=== PATIENT | male | born 1945 | race Caucasian/White ===

== ENCOUNTER → 2016-05-12 | Outpatient (CLI) | payer OTHER, MEDICARE ==
[~2016-05-12] MED LIST: ASPEC81 PO; RMCI IV
== END | disposition home or self-care (01) ==
LOC: C.LABPBG 14:26
PROVIDERS: ATTEND Internal Medicine
DX: E03.9 Hypothyroidism, unspecified (principal); Z11.59 Encounter for screening for other viral diseases

== ENCOUNTER → 2017-03-30 | Outpatient (CLI) | payer OTHER, MEDICARE ==
[2017-03-30 12:22] LABS: BASO % 0.5 %; BASO ABS # 0.03 K/uL (0-0.2); COMPLETE YES; EOS % 2.9 %; HEMATOCRIT 48.3 % (42-52); IG% 0.3 %; LYMPH % 28.4 %; LYMPH ABS # 1.68 K/uL (1.2-3.4); MEAN CELL VOLUME 91.5 fL (80-100); MEAN CORPUSCULAR HEMOGLOBIN 31.4 pg (25-34); MEAN CORPUSCULAR HGB CONC 34.4 g/dl (32-36); MEAN PLATELET VOLUME 10.6 fL (7.4-10.4); MONO % 11.3 %; NEUT % 56.6 %; PLATELET COUNT 157 K/uL (130-400); RED BLOOD COUNT 5.28 M/uL (4.7-6.1); WHITE BLOOD COUNT 5.91 K/uL (4.8-10.8)
[2017-03-30 12:44] LABS: ESTIMATED AVERAGE GLUCOSE 120 mg/dl; HA1C FLAG Normal (Normal)
[2017-03-30 13:11] LABS: ALT/SGPT 66 U/L (12-78); AST/SGOT 33 U/L (15-37); BLOOD UREA NITROGEN 20 mg/dl (7-18); BUN/CREATININE RATIO 24.5 (10-20); CALCIUM 8.7 mg/dl (8.5-10.1); CARBON DIOXIDE 26 mmol/L (21-32); CHLORIDE 109 mmol/L (98-107); CREATININE 0.84 mg/dl (0.60-1.40); GLUCOSE 120 mg/dl (70-99); POTASSIUM 3.9 mmol/L (3.5-5.1); SODIUM 140 mmol/L (136-145)
[2017-03-30 13:20] LABS: ALB/GLOB RATIO 0.9 (0.9-2); ALKALINE PHOSPHATASE 52 U/L (45-117); CHOLESTEROL 161 mg/dl (0-200); CHOLESTEROL/HDL RATIO 5.8; HDL CHOLESTEROL 28 mg/dl; LDL CHOLESTEROL CALCULATED 65 mg/dl; TRIGLYCERIDES 340 mg/dl (0-150); VERY LOW DENSITY LIPOPROT CALC 68 mg/dl
== END | disposition home or self-care (01) ==
LOC: C.LABPBG 11:10
PROVIDERS: ATTEND Internal Medicine
DX: I10 Essential (primary) hypertension (principal); E78.5 Hyperlipidemia, unspecified; E03.9 Hypothyroidism, unspecified; R73.01 Impaired fasting glucose; I63.9 Cerebral infarction, unspecified; K51.90 Ulcerative colitis, unspecified, without complications; Z79.899 Other long term (current) drug therapy

== ENCOUNTER 2021-01-09 14:20 | Observation (INO) ==
[2021-01-09] MEDS ORDERED: methylPREDNISolone 125 MG/2 ML VIAL IV STA (15:09)
[2021-01-09] MEDS ORDERED: ALBUT/IPRATROP 3MG/0.5MG NEB 3 ML VIAL INH STA (15:09)
--- NOTE | 2021-01-09 15:19 | Emergency Department Note ---
History of Present Illness General Chief complaint: Shortness of Breath/Dyspnea Stated complaint: SHORT OF BREATH Time Seen by Provider: 01/09/21 14:56 History of Present Illness 75-year-old male presents to the ED with a chief complaint of shortness of breath. 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 He states that he has had progressive increase in cough and shortness of breath over the past couple of weeks. His symptoms are worse with exertion. He has been rather fatigued recently as well. He does not currently use home oxygen and he is not currently on prednisone or steroids. He did use a DuoNeb treatment before coming in. Home Medications Medication Instructions Recorded Confirmed Type infliximab 100 mg intravenous 100 mg IV .EVERY 6 WEEKS 06/11/18 12/31/20 History solution (Remicade) aspirin 81 mg tablet,delayed 81 mg PO DAILY 01/09/21 01/09/21 History release (Aspirin Low Dose) Allergies Allergy/AdvReac Type Severity Reaction Status Date / Time amlodipine Allergy Intermediate RASH Verified 12/31/20 13:05 Past Med/Surg History Medical History BPH (benign prostatic hyperplasia) Cerebral arterial aneurysm Chronic ulcerative colitis CVA (cerebral vascular accident) Depression with anxiety Dyslipidemia GERD (gastroesophageal reflux disease) History of anesthesia reaction "wasn't cooperative during cataract extraction" HTN (hypertension) Hypothyroidism no longer on meds Impaired fasting glucose Nephrolithiasis Smokeless tobacco use Surgical History History of bilateral cataract extraction History of colonoscopy History of esophagogastroduodenoscopy (EGD) History of tooth extraction all upper teeth History of umbilical hernia repair Family History Sister Arthritis Brother Crohn's disease Cancer Gastric, skin Lung disease Father Lung disease Son Hypertension Other No family history of adverse response to anesthesia Denies family history of Ovarian cancer Prostate cancer Myocardial infarction Breast cancer Colorectal cancer Social History Smoking Status: Never smoker Tobacco Type: Cigarettes Age Started Using Tobacco: 19; packs per day: 1; Cigarettes Per Day: quit smoking around 45; Second Hand Exposure: No; Hx Alcohol Use: Yes Alcohol type: beer Alcohol type Comment: 2 Hx Substance Use: No Preferred Language: Senegalese Communication Ability: Effective Visual Impairment: No Limitations Hearing Ability: Normal Paper And Prints Restorer Required: No Beliefs That Will Affect Care: None marital status: Current Living Situation: Spouse current occupational status: retired Feels Safe at Home: Yes caffeine: Yes during the past year weight has: remained stable Dental Care, Regularly: Yes Physical Activity Frequency: Daily Seatbelt Use: always Sunscreen Use: No Assistive Devices: Denture - Upper and Glasses Review of Systems A total of 10 systems reviewed and were otherwise negative Physical Exam Vital Signs Vital Signs - 24 hr 01/09/21 14:26 01/09/21 14:54 01/09/21 14:55 Temperature 36.4 C L Temperature Source Skin Pulse Rate 79 Pulse Rate [Right Finger] 100 H Pulse Rhythm [Right Finger] Regular Pulse Strength [Right Finger] Normal Respiratory Rate 22 24 Respiratory Effort / Characteristics Non-Labored Respiratory Depth Normal Respiratory Pattern Regular Blood Pressure 159/86 H Blood Pressure [Left Arm] 150/85 H Blood Pressure Mean 110 Blood Pressure Mean [Left Arm] 106 Blood Pressure Position [Left Arm] Lying Pulse Oximetry 85 L 99 100 Oxygen Delivery Method Room Air Nasal Cannula Nasal Cannula Oxygen Flow Rate 6 4 Fraction of Inspired Oxygen SaO2/FiO2 Ratio Sepsis Recent Fever Within 48 Hours No Sepsis New/Unexplained Change in Mental Status No Sepsis Action Taken by Nursing No Action Required Oxygen Flow Rate - Titration 4 Pulse Oximetry Post Tiitration 98 01/09/21 15:05 01/09/21 15:08 01/09/21 15:35 Temperature Temperature Source Pulse Rate 72 Pulse Rate [Right Finger] Pulse Rhythm [Right Finger] Pulse Strength [Right Finger] Respiratory Rate 28 H Respiratory Effort / Characteristics Spontaneous Short of Breath Respiratory Depth Normal Respiratory Pattern Tachypnea Blood Pressure Blood Pressure [Left Arm] Blood Pressure Mean Blood Pressure Mean [Left Arm] Blood Pressure Position [Left Arm] Pulse Oximetry 99 97 Oxygen Delivery Method Nasal Cannula Nasal Cannula Nasal Cannula Oxygen Flow Rate 4 4 Fraction of Inspired Oxygen 4 SaO2/FiO2 Ratio 2425 Sepsis Recent Fever Within 48 Hours Sepsis New/Unexplained Change in Mental Status Sepsis Action Taken by Nursing Oxygen Flow Rate - Titration Pulse Oximetry Post Tiitration 01/09/21 15:50 Temperature Temperature Source Pulse Rate Pulse Rate [Right Finger] 73 Pulse Rhythm [Right Finger] Pulse Strength [Right Finger] Respiratory Rate 20 Respiratory Effort / Characteristics Non-Labored Spontaneous Respiratory Depth Respiratory Pattern Blood Pressure Blood Pressure [Left Arm] Blood Pressure Mean Blood Pressure Mean [Left Arm] Blood Pressure Position [Left Arm] Pulse Oximetry 98 Oxygen Delivery Method Nasal Cannula Oxygen Flow Rate 4 Fraction of Inspired Oxygen SaO2/FiO2 Ratio Sepsis Recent Fever Within 48 Hours Sepsis New/Unexplained Change in Mental Status Sepsis Action Taken by Nursing Oxygen Flow Rate - Titration Pulse Oximetry Post Tiitration CONSTITUTIONAL/VITAL SIGNS: Reviewed / noted above. GENERAL: Non-toxic in appearance. INTEGUMENTARY: Warm, dry, and [place]. HEAD: Normocephalic. EYES: without scleral icterus or trauma. ENT/OROPHARYNX: clear and moist. LYMPHADENOPATHY/NECK: Is supple without lymphadenopathy or meningismus. RESPIRATORY: Diminished with wheezes bilaterally. No increased work of breath ing at rest. CARDIOVASCULAR: Regular rate and rhythm. GI/ABDOMEN: Soft and nontender. No organomegaly or pulsatile mass. EXTREMITIES: Warm and well perfused. BACK: No CVA tenderness. NEUROLOGICAL: Intact without focal deficits. PSYCHIATRIC: normal affect. MUSCULOSKELETAL: Normally developed with good muscle tone. TRIAGE NURSING DOCUMENTATION REVIEWED. Course Administered Medications Discontinued Medications Albuterol (Albut/Ipratrop 3mg/0.5mg Neb 3 Ml Vial) 3 ml INH NOW STA Stop: 01/09/21 15:10 Last Admin: 01/09/21 15:48 Dose: 3 ml Documented by: [id number] Methylprednisolone (Methylprednisolone 125 Mg/2 Ml Vial) 125 mg IV NOW STA Stop: 01/09/21 15:10 Last Admin: 01/09/21 15:29 Dose: 125 mg Documented by: [id number] Medical Decision Making Differential Diagnosis The differential was considered includes acute myocardial infarction, acute coronary syndrome, myocarditis, pericarditis, pericardial effusions /tamponad, esophageal perforation, pulmonary embolism, pneumonia, pneumothorax, ca rdiomyopathy, congestive heart, anemia , COPD/asthma exacerbation. Medical Records Attestation: I reviewed the patient's medical records. Home Medications Current Medication List: was personally reviewed by me Laboratory Data Attestation: I reviewed the patient's lab results. Result diagrams: 01/09/21 15:20 01/09/21 15:20 Lab Results 01/09/21 01/09/21 Range/Units 15:20 15:20 WBC 6.56 (4.8-10.8) K/uL RBC 5.63 (4.7-6.1) M/uL Hgb 17.3 (14.0-18.0) g/dL Hct 54.5 H (42-52) % MCV 96.8 (80-100) fL MCH 30.7 (25-34) pg MCHC 31.7 L (32-36) g/dL RDW Std Deviation 47.4 H (36.4-46.3) fL RDW Coeff of Susan 13.3 (11.5-14.5) % Plt Count 158 (130-400) K/uL MPV 11.1 H (7.4-10.4) fL Immature Gran % (Auto) 0.3 % Neut % (Auto) 55.6 % Lymph % (Auto) 25.8 % Turner % (Auto) 14.6 % Eos % (Auto) 3.2 % Baso % (Auto) 0.5 % Neut # (Auto) 3.65 (1.4-6.5) K/uL Lymph # (Auto) 1.69 (1.2-3.4) K/uL Turner # (Auto) 0.96 H (0.11-0.59) K/uL Eos # (Auto) 0.21 (0-0.5) K/uL Baso # (Auto) 0.03 (0-0.2) K/uL Immature Gran # (Auto) 0.02 (0.00-0.02) K/uL Sodium 142 (136-145) mmol/L Potassium 4.4 (3.5-5.1) mmol/L Chloride 105 (98-107) mmol/L Carbon Dioxide 34 H (21-32) mmol/L Anion Gap 3.0 (3-11) BUN 20 H (7-18) mg/dl Creatinine 0.99 (0.6-1.4) mg/dl Est Cr Clr Drug Dosing 74.0 ml/min Est GFR ( Amer) 86.6 ml/min Est GFR (Non-Af Amer) 74.7 ml/min BUN/Creatinine Ratio 20.5 H (10-20) Glucose 93 (70-99) mg/dl Calcium 8.6 (8.5-10.1) mg/dl Total Bilirubin 0.4 (0.2-1) mg/dl AST 59 H (15-37) U/L ALT 86 H (12-78) U/L Alkaline Phosphatase 41 L (45-117) U/L Troponin I 0.049 H* (0-0.045) ng/ml NT-Pro-B Natriuret Pep 429 (0-900) pg/ml Total Protein 7.9 (6.4-8.2) gm/dl Albumin 3.3 L (3.4-5.0) gm/dl Globulin 4.6 H (2.5-4.0) gm/dl Albumin/Globulin Ratio 0.7 L (0.9-2) Specimen Hemolysis Imaging Data Radiologist's Impression: Chest X-Ray 01/09/21 15:09 XR chest 1V portable CLINICAL HISTORY: Dyspnea COMPARISON STUDY: August 16, 2010 FINDINGS: No pneumothorax. No pleural effusion. Lung volumes are decreased with crowded lung markings. No large infiltrates or consolidative lesions are seen. Mild nodular opacities are seen at the left base, unchanged since prior and might represent chronic changes. Few reticular opacities are seen at the right base and might represent subsegmental atelectasis or scarring. Cardiomediastinal silhouette is within normal limits in size. No significant pulmonary vascular congestion.. Aorta is calcified. Osseous structures: Degenerative changes of the spine. IMPRESSION: 1. No large infiltrates or consolidative lesions. Possible small atelectasis or scarring at the right base. 2. Redemonstration of the nodular opacities at the left base, unchanged since prior study in 2010 and likely represent chronic process. 3. Atherosclerosis. 4. The rest of findings as above. ACT 112: Negative or not required by law. The above report was generated using voice recognition software. It may contain grammatical, syntax or spelling errors. Electronically signed by: Gay Sims DO 01/09/2021 4:19 PM ECG Data Attestation: I personally reviewed and interpreted this ECG as follows: Additional Comments: Twelve-lead EKG: Per my interpretation there is a normal sinus rhythm at a rate of 65. T wave inversions are noted in the anterolateral leads.These are new compared to EKG dated 2010. MDM Narrative Patient presents with a history of Boop and progressive difficulty breathing and cough over the last 2 weeks as detailed above. His initial vital signs showed an oxygen saturation of 85% on room air. He does not have home oxygen. He did use a DuoNeb treatment prior to coming in. Vital signs otherwise stable. Exam reveals diffuse wheezing in the bilateral lungs. The chest x-ray did not show any acute process. Troponin was elevated at 0.049. CBC and chemistry panel was unremarkable. There is a mild transaminitis. The patient was told the results. He is requiring oxygen here to maintain saturations above 88%. He was given a nebulizer treatment as well as some IV steroid. He was also given p.o. aspirin. He will require further inpatient evaluation and care. Impression & Plan Hypoxia, Exertional dyspnea, Bilateral wheezing, Elevated troponin Discharge Plan Visit Data Chief Complaint: Shortness of Breath/Dyspnea Stated Complaint: SHORT OF BREATH ED Provider: Geovani Randall Discharge Problem: Hypoxia, Exertional dyspnea, Bilateral wheezing, Elevated troponin Patient Disposition: Being Evaluated by Hospitalist Forms Stand Alone Forms: [facility] Prescriptions Prescriptions: No Action aspirin 81 mg tablet 81 mg PO DAILY RF: 0 Remicade 100 mg Recon Soln 100 mg IV .EVERY 6 WEEKS RF: 0 Referrals Referrals: Pete Chapman MD [Primary Care Provider] -
[2021-01-09 15:37] LABS: Basophils # (auto) 0.03 K/uL (0-0.2); Basophils % (auto) 0.5 %; Eosinophils # (auto) 0.21 K/uL (0-0.5); Eosinophils % (auto) 3.2 %; Hematocrit (blood only) 54.5 % (42-52); Hemoglobin 17.3 g/dL (14.0-18.0); Immature Granulocytes # (auto) 0.02 K/uL (0.00-0.02); Immature Granulocytes % (auto) 0.3 %; Lymphocytes # (auto) 1.69 K/uL (1.2-3.4); Lymphocytes % (auto) 25.8 %; Mean Corpuscular Hemoglobin 30.7 pg (25-34); Mean Corpuscular Hgb Conc 31.7 g/dL (32-36); Mean Corpuscular Volume 96.8 fL (80-100); Mean Platelet Volume 11.1 fL (7.4-10.4); Monocytes # (auto) 0.96 K/uL (0.11-0.59); Monocytes % (auto) 14.6 %; Neutrophils # (auto) 3.65 K/uL (1.4-6.5); Neutrophils % (auto) 55.6 %; Platelet Count 158 K/uL (130-400); RDW Coefficient of Variation 13.3 % (11.5-14.5); RDW Standard Deviation 47.4 fL (36.4-46.3); Red Blood Count 5.63 M/uL (4.7-6.1); White Blood Count 6.56 K/uL (4.8-10.8)
[2021-01-09 15:55] LABS: Albumin Level 3.3 gm/dl (3.4-5.0); BUN Creatinine Ratio 20.5 (10-20); Calcium 8.6 mg/dl (8.5-10.1); Est GFR (African American) 86.6 ml/min; Est GFR (Non-African American) 74.7 ml/min; Potassium 4.4 mmol/L (3.5-5.1)
[2021-01-09 16:02] LABS: Albumin Globulin Ratio 0.7 (0.9-2); Bilirubin,Total 0.4 mg/dl (0.2-1); Globulin 4.6 gm/dl (2.5-4.0); Total Protein 7.9 gm/dl (6.4-8.2); Troponin I 0.049 ng/ml (0-0.045)
--- NOTE | 2021-01-09 16:21 | XRay Report ---
XR chest 1V portable CLINICAL HISTORY: Dyspnea COMPARISON STUDY: August 16, 2010 FINDINGS: No pneumothorax. No pleural effusion. Lung volumes are decreased with crowded lung markings. No large infiltrates or consolidative lesions are seen. Mild nodular opacities are seen at the left b ase, unchanged since prior and might represent chronic changes. Few reticular opacities are seen at the right base and might represent subsegmental atelectasis or sc arring. Cardiomediastinal silhouette is within normal limits in size. No significant pulmonary vascular congestion.. Aorta is calcified. Osseous structures: Degenerative changes of the spine. IMPRESSION: 1. No large infiltrates or consolidative lesions. Possible small atelectasis or scarring at the righ t base. 2. Redemonstration of the nodular opacities at the left base, unchanged since prior study in 2010 an d likely represent chronic process. 3. Atherosclerosis. 4. The rest of findings as above. ACT 112: Negative or not required by law. The above report was generated using voice recognition software. It may contain grammatical, syntax o r spelling errors. Electronically signed by: Gay Sims DO 01/09/2021 4:19 PM
[2021-01-09] MEDS ORDERED: ASPIRIN CHEW 324 MG PO STA (16:24)
--- NOTE | 2021-01-09 17:16 | History & Physical Report ---
Date of Service January 09, 2021 Assessment & Plan (1) Hypoxia: Plan: Likely underlying obstructive/restrictive disease and now possibly needing chronic O2. 6 minute walk test for tomorrow Will defer chronic steroid treatment to pulmonology but will need to follow up for lung function tests (2) Reactive airway disease: Plan: Previously diagnosed with this. Will need PFTs as outpatient. Solu-medrol 125mg IV given in ER Start prednisone 40mg PO daily tomorrow. Will defer taper/burst to pulm Duonebs Q4R Consider steroid inhaler alone on discharge (suspect prior side effects from maintenance inhalers was from [facility]) (3) Bilateral wheezing: Plan: As above (4) Elevated troponin: Plan: Widespread TWI. History not suggestive of ACS. Will trend to make sure stable and get TTE tomorrow. If any wall motion abnormalities or reduced EF will need cardiology follow up as long as troponins stable/downtrending. ASA given in ER. Will defer further treatment unless troponin uptrending. (5) BOOP (bronchiolitis obliterans with organizing pneumonia): Plan: History of such Consult pulmonology Plan: VTE Prophylaxis - Low risk, deferred Diet - heart healthy Disposition - observation status to med/tele Admission and Anticipated Discharge Date Admission Date: January 09, 2021 History of Present Illness Chief Complaint: Shortness of breath Primary Care Provider: Pete Chapman MD Robby Freeman is a 75 year old male with prior diagnosis of bronchiolitis obliterans organizing pneumonia who presents to the ER on advice of his PCP office for shortness of breath. He was previously treated by Dr Zamudio ([facility] pulmonology) on chronic prednisone 5mg PO daily and oxygen. When he switched to a new provider (many years ago) he was taken off these as he was told he didn't need then but has had repeated "acute bronchitis" episodes requiring antibiotics and steroids since. Over the past few weeks he has been getting increasingly short of breath and more hypoxic on his home O2 sats. Today he was in the mid 80s therefore his PCP office recommended going to the ER. He feels he needs to go back on chronic steroids and oxygen. He uses an albuterol inhaler that helps. Previous tried maintenance inhalers (unknown which ones) but had side effects so had to stop them. He is a former smoker of 5 cigarettes a day for 16 years in his youth. BOOP was diagnosed after suspected chemical poisoning from cleaning HVAC units from [id number]. He is vaccinated for COVID. In the ER he is diffusely wheezing, CXR unremarkable for acute process. He was given 125mg IV Solu-medrol and Duonebs with improvement in his symptoms. His troponin was mildly elevated with diffuse TWI but he denies any acute change in symptoms today and no chest pain. He was referred to medicine for admission and ongoing management due to requiring 2LPM O2 to maintain sats > 88%. He tells me he does not wish to stay more than one night. Allergies Allergy/AdvReac Type Severity Reaction Status Date / Time amlodipine Allergy Intermediate RASH Verified 12/31/20 13:05 Home Medications Medication Instructions Recorded Confirmed Type infliximab 100 mg intravenous 100 mg IV .EVERY 6 WEEKS 06/11/18 01/09/21 History solution (Remicade) aspirin 81 mg tablet,delayed 81 mg PO DAILY 01/09/21 01/09/21 History release (Aspirin Low Dose) Past Med/Surg History Medical History BPH (benign prostatic hyperplasia) Cerebral arterial aneurysm Chronic ulcerative colitis CVA (cerebral vascular accident) Depression with anxiety Dyslipidemia GERD (gastroesophageal reflux disease) History of anesthesia reaction "wasn't cooperative during cataract extraction" HTN (hypertension) Hypothyroidism no longer on meds Impaired fasting glucose Nephrolithiasis Smokeless tobacco use Surgical History History of bilateral cataract extraction History of colonoscopy History of esophagogastroduodenoscopy (EGD) History of tooth extraction all upper teeth History of umbilical hernia repair Family History Sister Arthritis Brother Crohn's disease Cancer Gastric, skin Lung disease Father Lung disease Son Hypertension Other No family history of adverse response to anesthesia Denies family history of Ovarian cancer Prostate cancer Myocardial infarction Breast cancer Colorectal cancer Social History Smoking Status: Former smoker Tobacco Type: Cigarettes Age Started Using Tobacco: 19; packs per day: 1; Cigarettes Per Day: quit smoking around 45; Smoking End Date: 20 yrs ago.; Second Hand Exposure: No; Do You Dip or Chew Tobacco: Yes; Tobacco Cessation Education Requested by Patient: No Hx Alcohol Use: Yes Alcohol type: beer Alcohol type Comment: 2 Hx Substance Use: No Preferred Language: Danish Communication Ability: Effective Visual Impairment: No Limitations Hearing Ability: Normal Talent Development Specialist Required: No Beliefs That Will Affect Care: None marital status: Current Living Situation: Alone Current Living Situation Comment: at home alone with 3 dogs. current occupational status: retired Other Information That Helps Us Care for You: No Feels Safe at Home: Yes Safety Concerns: Feels Safe At This Time caffeine: Yes during the past year weight has: remained stable Dental Care, Regularly: Yes Physical Activity Frequency: Daily Seatbelt Use: always Sunscreen Use: No Assistive Devices: Denture - Upper and Glasses Review of Systems Review of Systems: All systems reviewed & are unremarkable except as noted in HPI & below Physical Exam Constitutional: WD/WN, vitals as above Eyes: PERRL, conjunctivae normal, anicteric sclerae Neck: trachea midline, no thyromegaly Respiratory: normal respiratory effort; no respiratory distress, does not use accessory muscles, expiratory phase not prolonged and no audible wheezes Auscultation: + crackles (fine posteriorly throughout) and + wheezes (expiratory throughout) Cardiovascular: RRR, no murmur, no edema Gastrointestinal (Abdomen): normal bowel sounds, soft, nontender, no hepatosplenomegaly Musculoskeletal: no cyanosis or clubbing, extremities motor strength 5/5 Skin: no rashes, warm and dry Neurologic: moves all extremities and awake; no focal motor deficits and not confused Psychiatric: A+Ox3, euthymic affect Genitourinary: no CVA tenderness Results & Data Results & Data ([facility]) Vital Signs (Past 12 Hours) Vital Signs Temp Pulse Pulse Resp BP BP Pulse Ox 01/09/21 16:58 83 20 156/91 H 96 01/09/21 15:50 73 20 98 01/09/21 15:35 72 28 H 97 01/09/21 15:08 99 01/09/21 14:55 100 H 24 150/85 H 100 01/09/21 14:54 99 01/09/21 14:26 36.4 C L 79 22 159/86 H 85 L Diagnostic Findings XR chest 1V portable CLINICAL HISTORY: Dyspnea COMPARISON STUDY: August 16, 2010 FINDINGS: No pneumothorax. No pleural effusion. Lung volumes are decreased with crowded lung markings. No large infiltrates or consolidative lesions are seen. Mild nodular opacities are seen at the left base, unchanged since prior and might represent chronic changes. Few reticular opacities are seen at the right base and might represent subsegmental atelectasis or scarring. Cardiomediastinal silhouette is within normal limits in size. No significant pulmonary vascular congestion.. Aorta is calcified. Osseous structures: Degenerative changes of the spine. IMPRESSION: 1. No large infiltrates or consolidative lesions. Possible small atelectasis or scarring at the right base. 2. Redemonstration of the nodular opacities at the left base, unchanged since prior study in 2010 and likely represent chronic process. 3. Atherosclerosis. 4. The rest of findings as above. Medications Administered ER medications given: Methylprednisolone 125mg IV Duoneb 3ml Aspirin 324mg PO ECG Indication: SOB/dyspnea Rate (beats per minute): 65 Rhythm: normal sinus Findings: + T-wave inversion (Anterolateral, interior) Comparison ECG Date: from (August 16, 2010) Change: the following changes noted (widespread TWI are new) Code Status & VTE Plan Code Status Full VTE Prophylaxis Plan VTE Prophylaxis will be ordered: No Reason for no VTE drug order: Treatment not indicated Reason for no VTE mechanical prophylaxis: Treatment not indicated PG Care Time/CCT Total # of Minutes Spent Total Time Spent with Patient: Total time spent is greater than 50% in coordination of care (as documented) at patient's floor/unit and/or counseling patient: Coding Level of Care Code INT OBSERVATION CARE 50M LVL 2 Diagnoses Hypoxia R09.02 BOOP (bronchiolitis obliterans with organizing pneumonia) J84.89 Reactive airway disease J45.909 Bilateral wheezing R06.2 Elevated troponin R77.8
[2021-01-09] MEDS ORDERED: POLYETHYLENE (MIRALAX) 17 GM PACK PO PRN (20:51)
[2021-01-09] MEDS ORDERED: ACETAMINOPHEN 325 MG TAB PO PRN (20:51)
[2021-01-09] MEDS ORDERED: ONDANSETRON INJ 2 MG/ML 2 ML VIAL IV PRN (20:51)
[2021-01-09] MEDS ORDERED: INFLUENZA VACCINE HIGH DOSE PF 65+ 0.7 ML SYR IM ONE (21:07)
[2021-01-09] MEDS ORDERED: PNEUMOCOCCAL POLYSACCHARIDES 25 MCG/0.5 ML VIAL/SYR IM ONE (21:07)
[2021-01-09] MEDS: ALBUT/IPRATROP 3MG/0.5MG NEB 3 ML VIAL NEB SCH ×2 (21:52→22:23)
[2021-01-10] MEDS: ALBUT/IPRATROP 3MG/0.5MG NEB 3 ML VIAL NEB SCH ×4 (01:49→16:11)
[2021-01-10 06:29] LABS: Hematocrit (blood only) 55.3 % (42-52); Hemoglobin 17.3 g/dL (14.0-18.0); Immature Granulocytes # (auto) 0.02 K/uL (0.00-0.02); Immature Granulocytes % (auto) 0.2 %; Lymphocytes # (auto) 0.72 K/uL (1.2-3.4); Lymphocytes % (auto) 6.9 %; Mean Corpuscular Hemoglobin 30.3 pg (25-34); Mean Corpuscular Volume 96.8 fL (80-100); Monocytes # (auto) 0.51 K/uL (0.11-0.59); Monocytes % (auto) 4.9 %; Neutrophils # (auto) 9.14 K/uL (1.4-6.5); Platelet Count 179 K/uL (130-400); RDW Coefficient of Variation 13.2 % (11.5-14.5); RDW Standard Deviation 46.6 fL (36.4-46.3); Red Blood Count 5.71 M/uL (4.7-6.1); White Blood Count 10.39 K/uL (4.8-10.8)
[2021-01-10 06:49] LABS: Mean Corpuscular Hgb Conc 31.3 g/dL (32-36)
[2021-01-10 07:38] LABS: Alanine Aminotransferase 80 U/L (12-78); Albumin Globulin Ratio 0.7 (0.9-2); Albumin Level 3.3 gm/dl (3.4-5.0); Alkaline Phosphatase 41 U/L (45-117); Aspartate Aminotransferase 41 U/L (15-37); BUN Creatinine Ratio 20.7 (10-20); Bilirubin,Total 0.9 mg/dl (0.2-1); Blood Urea Nitrogen 24 mg/dl (7-18); Carbon Dioxide 33 mmol/L (21-32); Chloride 102 mmol/L (98-107); Creatinine Clr Calc Pharmacy 62.1 ml/min; Est GFR (Non-African American) 60.4 ml/min; Globulin 4.7 gm/dl (2.5-4.0); Glucose 134 mg/dl (70-99); Potassium 5.3 mmol/L (3.5-5.1); Sodium 137 mmol/L (136-145); Troponin I < 0.015 ng/ml (0-0.045)
[2021-01-10] MEDS ORDERED: AZITHROMYCIN 500 MG in DEXTROSE 5% 250 ML IV ONE (08:30)
[2021-01-10] MEDS ORDERED: predniSONE 20 MG TAB PO SCH (09:00)
[2021-01-10] MEDS ORDERED: ASPIRIN 81 MG ECTAB PO SCH (09:00)
[2021-01-10] MEDS ORDERED: PATIROMER CALCIUM SORBITEX 8.4 GM PACK PO ONE (09:00)
--- NOTE | 2021-01-10 12:58 | CT Scan Report ---
CT chest diagnostic wo con CLINICAL HISTORY: sob COMPARISON STUDY: March 12, 2010 CT DOSE: 828.54 mGy.cm TECHNIQUE: CT of the thorax was performed from the thoracic inlet to the lung bases. Images are revi ewed in the axial, sagittal, and coronal planes. IV contrast was not administered for this examinatio n. A dose lowering technique was utilized adhering to the principles of ALARA. FINDINGS: There is no axillary, supra clavicle or internal mammary lymphadenopathy seen. Mediastinal lymph node s are not enlarged. Thyroid: Visualized portion of thyroid gland shows no evidence of focal lesions. There is normal CT appearance of esophagus. Mild fat containing hiatal hernia is seen. Thoracic aorta: There is mild interval ectasia of ascending and descending portion of thoracic aorta measuring 4.0 cm in diameter within its ascending part and 3.0 cm within its descending part. Redemonstration of main pulmonary artery dilatation measuring 3.7 cm in diameter, unchanged since nette or and could be seen in pulmonary hypertension. Calcifications of aortic wall are seen. Heart: The heart is normal in size and configuration, without pericardial effusion. Moderate to sever e coronary calcifications are seen. Calcifications of aortic valve are demonstrated. Lungs and pleural spaces: Tracheobronchial tree is patent. No large infiltrates or consolidative lesions are seen. Previously seen irregular peribronchovascular consolidative opacities intermixed with groundglass att enuation of pulmonary parenchyma are resolved. Right hemidiaphragm is elevated. There is scarring is seen at bilateral bases. Recently seen nodularity at the right and left base might represent prominent vascular structures wit hin scarring of the lung parenchyma at bilateral lower lungs. No pleural effusion is seen. Patchy areas of groundglass attenuation is seen at bilateral lower lungs which could represent air tr apping or/and altered perfusion. -Redemonstration of 6 mm pulmonary nodule within the right lower lobe, which was also seen during Oct CT of the chest () -There is 5 mm pulmonary nodule at the subpleural aspect of the left lower lobe (4/166), this lesion was not definitely seen during prior which could be due to widespread opacities that are seen on prio r study or represent new pulmonary nodule. Upper abdomen: Liver is enlarged which is measuring 25 cm in anterior-posterior dimension. Diffuse d ecrease in attenuation of visualized liver parenchyma without focal lesions or intrahepatic biliary d ilatation. Large calculus is seen within fluid-filled gallbladder. No evidence of pericholecystic sara ma. There is 3.1 x 3.1 cm right renal cyst with calcified wall, unchanged since prior study performed 11 years ago. Skeletal structures: Mild diffuse osteopenia and degenerative changes of the spine. Syndesmophytes ar e seen within mid thoracic spine. IMPRESSION: 1. Recently seen nodular prominence at the lower lungs likely represent scarring within bilateral lo wer lobes as sequela from prior inflammatory process such as cryptogenic organizing pneumonia versus other etiology. Previously seen irregular peribronchovascular opacities are no longer visualized. Mil d groundglass attenuation within bilateral lower lobes might represent mild air trapping or altered p erfusion which could be seen in pulmonary hypertension. 2. No acute infiltrates or consolidative lesions. 3. 5 mm pulmonary nodule within subpleural aspect of the left lower lobe, might not be seen during p rior study or represent interval development of the small pulmonary nodule. 12 months follow-up is op tional per Fleischner Society guidelines. 4. Stable dilatation of the main pulmonary artery which could be seen in pulmonary hypertension. 5. Interval development of mild ectasia of ascending and descending thoracic aorta, incompletely nannette luated on this nondedicated exam. Attention on follow-up imaging. 6. Cholelithiasis without cholecystitis. 7. Hepatomegaly. Hepatic steatosis. 8. Stable size peripherally calcified right renal cyst which is unchanged since 2010 and incompletel y evaluated on this nondedicated exam. Please note that wall calcification of renal cystic lesion cou ld be sign of neoplastic process. 9. Atherosclerosis. 10. The rest of findings as above Please refer to below summary of Fleischner criteria recommendations for follow-up of incidental CT n odules (Guerda Galvan, Guidelines for management of small pulmonary nodules detected on CT scans: A sta tement from the Fleischner Society, Radiology 237: [phone].) SOLID NODULES Solitary nodule size: <6 mm * low risk patients: no follow-up needed * high risk patients: optional CT at 12 months Solitary nodule size: 6-8 mm * low risk patients: follow-up at 6-12 months, then consider further follow-up at 18-24 months * high risk patients: initial follow-up CT at 6-12 months and then at 18-24 months if no change Solitary nodule size: >8 mm * either low or high risk patients - consider follow-up CT at 3 months, and/or CT-PET, and/or biopsy Multiple nodules size: <6 mm * low risk patients: no routine follow-up * high risk patients: optional CT at 12 months Multiple nodules size: 6-8 mm * low risk patients: follow-up at 3-6 months, then consider further follow-up at 18-24 months * high risk patients: follow-up at 3-6 months, then at 18-24 months if no change Multiple nodules size: >8 mm * low risk patients: follow-up at 3-6 months, then consider further follow-up at 18-24 months * high risk patients: follow-up at 3-6 months, then at 18-24 months if no change Note: newly detected indeterminate nodule in persons 35 years of age or older. * low risk patients: minimal or absent history of smoking and/or other known risk factors * high risk patients: history of smoking or of other known risk factors (e.g. first degree relative with lung cancer, or exposure to asbestos, radon, uranium) * if a nodule up to 8 mm is partly solid or is ground glass further follow-up is required after 24 m onths to exclude possible slow growing adenocarcinoma ([facility]) SUBSOLID NODULES Solitary pure ground-glass nodule * nodule size <6 mm - no CT follow-up required * nodule size >=6 mm - follow-up CT at 6-12 months, then every 2 years until 5 years Solitary part-solid nodule * nodule size <6 mm - no CT follow-up required * nodule size >=6 mm - follow-up CT at 3-6 months. If unchanged, and solid component remains <6 mm, then annual follow-up for 5 years Multiple subsolid nodules * nodule size <6 mm - follow-up CT at 3-6 months, consider further follow-up at 2 and 4 years if sta ble * nodule size >=6 mm - follow-up CT at 3-6 months, subsequent management based on the most suspiciou s nodule(s) ACT 112: Positive. There are findings on this exam that require communication between the performing entity and the patient following Patient Test Result Information Act ([place] Act 112) guidelines. The above report was generated using voice recognition software. It may contain grammatical, syntax o r spelling errors. Electronically signed by: Gay Sims DO 01/10/2021 12:56 PM
--- NOTE | 2021-01-10 17:45 | XCELERA ---
[id number]
--- NOTE | 2021-01-10 17:47 | Discharge Summary ---
Date of Service January 10, 2021 Admission HPI Per Admitting Provider Robby Freeman is a 75 year old male with prior diagnosis of bronchiolitis obliterans organizing pneumonia who presents to the ER on advice of his PCP office for shortness of breath. He was previously treated by Dr Zamudio ([facility] pulmonology) on chronic prednisone 5mg PO daily and oxygen. When he switched to a new provider (many years ago) he was taken off these as he was told he didn't need then but has had repeated "acute bronchitis" episodes requiring antibiotics and steroids since. Over the past few weeks he has been getting increasingly short of breath and more hypoxic on his home O2 sats. Today he was in the mid 80s therefore his PCP office recommended going to the ER. He feels he needs to go back on chronic steroids and oxygen. He uses an albuterol inhaler that helps. Previous tried maintenance inhalers (unknown which ones) but had side effects so had to stop them. He is a former smoker of 5 cigarettes a day for 16 years in his youth. BOOP was diagnosed after suspected chemical poisoning from cleaning HVAC units from [id number]. He is vaccinated for COVID. In the ER he is diffusely wheezing, CXR unremarkable for acute process. He was given 125mg IV Solu-medrol and Duonebs with improvement in his symptoms. His troponin was mildly elevated with diffuse TWI but he denies any acute change in symptoms today and no chest pain. He was referred to medicine for admission and ongoing management due to requiring 2LPM O2 to maintain sats > 88%. He tells me he does not wish to stay more than one night. Admission Exam Per Admitting Provider Constitutional: WD/WN, vitals as above Eyes: PERRL, conjunctivae normal, anicteric sclerae Neck: trachea midline, no thyromegaly Respiratory: normal respiratory effort; no respiratory distress, does not use accessory muscles, expiratory phase not prolonged and no audible wheezes Auscultation: + crackles (fine posteriorly throughout) and + wheezes (expiratory throughout) Cardiovascular: RRR, no murmur, no edema Gastrointestinal (Abdomen): normal bowel sounds, soft, nontender, no hepatosplenomegaly Musculoskeletal: no cyanosis or clubbing, extremities motor strength 5/5 Skin: no rashes, warm and dry Neurologic: moves all extremities and awake; no focal motor deficits and not confused Psychiatric: A+Ox3, euthymic affect Genitourinary: no CVA tenderness Principal Diagnosis BOOP, reactive airway disease Discharge Exam GENERAL: No acute distress. Well developed and well nourished. Vital signs reviewed as above. EYES: EOMI. Anicteric sclerae. HENT: Moist mucous membranes. RESPIRATORY: Diffuse coarse breath sounds bilaterally. CARDIOVASCULAR: Regular rate and rhythm. No murmurs. ABDOMEN: Soft, non-tender and non-distended. Normal bowel sounds. EXTREMITIES: No edema. Non-tender. SKIN: Warm, dry. No rashes or lesions. NEUROLOGIC: A/O x3. No focal neurological deficits. CN II-XII grossly intact, but not individually tested. PSYCHIATRIC: Cooperative. Appropriate mood and affect. Discharge Data Allergies Allergy/AdvReac Type Severity Reaction Status Date / Time amlodipine Allergy Intermediate RASH Verified 12/31/20 13:05 Consultations 01/09/21 16:24 ED Decision to Admit Stat 01/09/21 20:51 Consult Pulmonology Routine Ordered Studies 01/10/21 08:13 CT chest diagnostic wo con Routine Hospital Course (1) BOOP (bronchiolitis obliterans with organizing pneumonia): Robby Freeman is a 75 yo male with PMHx of BOOP, reactive airway disease, hypertension, and GERD who presented to the ER with complaint of hypoxia and worsening shortness of breath. BOOP, Reactive Airway disease, Acute Hypoxia - History of BOOP, diagnosed ~15 years ago per patient - Previously also diagnosed with reactive airway disease - CXR 01/09: No large infiltrates or consolidative lesions. Possible small atelectasis or scarring at the right base. Redemonstration of the nodular opacities at the left base, unchanged since prior study in 2010 and likely represent chronic process. Atherosclerosis. - Chest CT 01/10: Recently seen nodular prominence at the lower lungs likely represent scarring within bilateral lower lobes as sequela from prior inflammatory process such as cryptogenic organizing pneumonia versus other etiology. Previously seen irregular peribronchovascular opacities are no longer visualized. Mild groundglass attenuation within bilateral lower lobes might represent mild air trapping or altered perfusion which could be seen in pulmonary hypertension. No acute infiltrates or consolidative lesions. 5 mm pulmonary nodule within subpleural aspect of the left lower lobe, might not be seen during prior study or represent interval development of the small pulmonary nodule. 12 months follow-up is optional per Fleischner Society guidelines. - Presented with hypoxia; on 2-step testing, patient noted to require 2L O2 at rest and 3L O2 w/ ambulation/activity. Home oxygen ordered for patient. - Received solu-medrol 125mg IV given in ER - Rx prednisone taper: 40mg po daily x4 days, 30mg po daily x4 days, 20mg po daily x4 days, 10mg po daily x4 days. Would then consider 5mg po daily but recommend further pulmonology evaluation/management for chronic steroid use vs. immunomodulator vs. other therapy - Also discharged with rx for azithromycin 250mg po daily x4 days (received azithromycin 500mg x1 on day of hospitalization) - Consider addition of antimuscarinic inhaler - No pulmonology evaluation for many years; previously under the care of Dr. Zamudio ([facility] pulmonology) but did not continue with pulmonology follow up after his leave - Recommend that patient establish with concrete swimming pool installer for further evaluation and management. Encouraged patient to follow up in 1-2 weeks prior to end of prednisone taper. - Patient has not had PFTs. Recommend PFTs as outpatient. - Patient adamant of need to be discharged from hospital today (hospital day #1). Recommend close PCP follow up. Elevated troponin - History not suggestive of ACS. However, concern for NSTEMI on EKG. - Troponin trended: decreased from 0.049 --> 0.017 --> less than 0.015 - TTE performed today. Unfortunately, unable to read report prior to patient discharge. Follow up with PCP to review results of echo. - ASA given in ER. Continue home ASA on discharge. - Would consider addition of ERLINDA and statin for cardioprotective measures, however, patient requesting to have PCP follow up first. (2) Hypoxia: (3) Exertional dyspnea: (4) Elevated troponin: (5) Reactive airway disease: Total Time Total Time Spent Total Time Spent (In Minutes): <30 (did not really focus on time spent on discussions of his case or time in room with him, strongly suspect it was >30, but since not totally sure, will keep as <30 for bureaucratic purposes) Discharge Plan Discharge Items Patient Disposition: Home - Self-Care Reason For Visit: ELEVATED TROPONIN, HYPOXIA Discharge Diagnosis: hypoxia, BOOP exacerbation Condition on Discharge: Good Activity: Resume your previous activity Non-emergency contact: Primary Care Provider and Vocational Technical Education Director Call non-emergency contact if: you have any medication questions and your symptoms worsen Follow-up/Referrals: Pete Chapman MD [Primary Care Provider] - 01/18/21 11:00 am Diet: Regular Addtl Attending Provider Instructions: It was our pleasure to care for you at [facility] from 01/09/21 to 01/10/21. You initially presented to the ER with shortness of breath and hypoxia (low blood oxygen levels). Imaging has supported that there is an exacerbation of your lung condition, bronchiolitis obliterans organizing pneumonia (BOOP). As we discussed, please follow up with a concrete swimming pool installer within the next 1-2 weeks. You will need to use the supplemental oxygen as ordered -- 2 liters at rest and 3 liters with ambulation/activity. The following medications have been ordered for you. Please take them as prescribed: 1. Prednisone taper 2. Azithromycin Follow up with your primary care doctor in 2-3 days. You should also discuss the echo results with your doctor and you may need to see a mixologist. Pending Studies at Discharge: Yes Studies:: transthoracic echo Stand-Alone Forms: [facility], Smoking Cessation Medications and DC Order Prescriptions: New azithromycin 250 mg tablet 250 mg PO DAILY 4 Days Qty: 4 RF: 0 prednisone 10 mg tablet 10 mg PO DIRECTED Qty: 40 RF: 0 Continued Remicade 100 mg Recon Soln 100 mg IV .EVERY 6 WEEKS RF: 0 aspirin [Aspirin Low Dose] 81 mg Tablet,Delayed Release (Dr/Ec) 81 mg PO DAILY RF: 0 Discharge Orders: Discharge Order (Routine); Ordered 01/10/21 Ordered By: Zenaida Calix Admission Data Admit Date/Time: 01/09/21 17:21 Attending Provider: Andrew Valverde Admit Provider: Vignesh Cuevas Primary Care Provider: Pete Chapman Other Providers: Vignesh Cuevas ; Jaymie Doyle Other Interventions: Discharge Summary Assessment (RN) Last Done: 01/10/21 17:28 Supervising Physician Co-Signing Physician Notes I personally examined the patient and verified all guevara points of history and exam, discussed case, and agree with decision making with Dr Bouwer Feeling better with oxygen. Very much wants to go hometo the point of basically he has about a hard line of 5:00 for us to get work-up studies and plans togetherdiscussed with him our working plan from a pulmonary standpoint, discussed with him my concerns from a cardiac standpoint given his EKGand the desire to be able to at least build a complete plan prior to discharge. He expressed understanding of the need for managing these issues, but insisted on leaving by 5:00which was prior to when the echocardiogram was back. Vitals noted, in general he is awake and alert pleasant no distress. HEENT normocephalic atraumatic mucous membranes moist. Breathing unlabored no accessory muscle use good effort. Skin shows no rashes no pallor or icterus. Neuro without focal deficits. Exam otherwise as above. Dyspnea hypoxialikely does relate to Boop, probably with a bit of an exacerbation. From this standpoint, is now adequately oxygenating with supplemental O2, feeling better on steroids and azithromycinwe will continue this. Discussed with him the importance of pulmonary follow-up given the new onset of ongoing management of Boop, and that chronic steroids may be of benefit, but there may be other therapeutic modalities that could be even more helpful/useful/less side effect riddledbut this would really be nuance that a concrete swimming pool installer would be better suited to handlein that respect he expressed a willingness to follow-up with pulmonary. Tried to get spirometry while he was in the hospital, given his frequent lack of follow-up for testing etc. at other times, but unfortunately we were unable to get it done Diffuse T wave inversion on EKGfortunately no wall motion abnormalities on echo, a little bit of LVH, but probably not enough to explain the T wave inversionswould have preferred to be able to discuss a med management plan for coronary disease, and probably would be worthwhile to do stress testing versus having cardiology see himpatient left before I was really able to flush all this out with him. That said, we did discuss the probability of ERLINDA inhibitor, statin, possible beta-blockerand at least at face value he seemed amenable, so this could hopefully be discussed at outpatient follow-up. Again it was unfortunate that he insisted on leaving prior to my being able to truly work through everything with him, but at least he did express a degree of an understanding that there may be problems he would be better off managing than ignoring. Otherwise as above, close PCP follow-up if patient will follow through. Resident Activity Tracking Resident Involvement: Resident Care Provided Care Provided: Adult Hospital Medicine
--- NOTE | 2021-01-10 18:23 | Pulmonary Consultation ---
Date of Consultation January 10, 2021 Assessment & Plan (1) Exertional dyspnea: CT chest 01/10/2021 personally reviewed: Small right upper lobe cyst, elevated right hemidiaphragm with atelectasis dependent on the right side Left lower lobe peripheral 5 mm pleural-based nodule History of Present Illness Attending Physician: Andrew Valverde DO History of Present Illness Patient discharged prior to me being able to see him. Patient was not examined, no orders were placed. Please do not charge for this consult. Thank you Allergies Allergy/AdvReac Type Severity Reaction Status Date / Time amlodipine Allergy Intermediate RASH Verified 12/31/20 13:05 Home Medications Medication Instructions Recorded Confirmed Type infliximab 100 mg intravenous 100 mg IV .EVERY 6 WEEKS 06/11/18 01/09/21 History solution (Remicade) aspirin 81 mg tablet,delayed 81 mg PO DAILY 01/09/21 01/09/21 History release (Aspirin Low Dose) azithromycin 250 mg tablet 250 mg PO DAILY 4 Days #4 tab 01/10/21 Rx prednisone 10 mg tablet 10 mg PO DIRECTED #40 tab 01/10/21 Rx Patient History Medical History BPH (benign prostatic hyperplasia) Cerebral arterial aneurysm Chronic ulcerative colitis CVA (cerebral vascular accident) Depression with anxiety Dyslipidemia GERD (gastroesophageal reflux disease) History of anesthesia reaction "wasn't cooperative during cataract extraction" HTN (hypertension) Hypothyroidism no longer on meds Impaired fasting glucose Nephrolithiasis Smokeless tobacco use Surgical History History of bilateral cataract extraction History of colonoscopy History of esophagogastroduodenoscopy (EGD) History of tooth extraction all upper teeth History of umbilical hernia repair Family History Sister Arthritis Brother Crohn's disease Cancer Gastric, skin Lung disease Father Lung disease Son Hypertension Other No family history of adverse response to anesthesia Denies family history of Ovarian cancer Prostate cancer Myocardial infarction Breast cancer Colorectal cancer Social History Smoking Status: Former smoker Tobacco Type: Cigarettes Age Started Using Tobacco: 19; packs per day: 1; Cigarettes Per Day: quit smoking around 45; Second Hand Exposure: No; Hx Alcohol Use: Yes Alcohol type: beer Alcohol type Comment: 2 Hx Substance Use: No Preferred Language: Kenyan Communication Ability: Effective Visual Impairment: No Limitations Hearing Ability: Normal Remarketing Manager Required: No Beliefs That Will Affect Care: None marital status: Current Living Situation: Alone Current Living Situation Comment: at home alone with 3 dogs. current occupational status: retired Feels Safe at Home: Yes caffeine: Yes during the past year weight has: remained stable Dental Care, Regularly: Yes Physical Activity Frequency: Daily Seatbelt Use: always Sunscreen Use: No Assistive Devices: Glasses and Nebulizer Review of Systems Review of Systems: All systems reviewed & are unremarkable except as noted in HPI & below Results & Data Results & Data ([place]) Vital Signs (Past 12 Hours) Vital Signs Temp Pulse Pulse Pulse Pulse Pulse Pulse 01/10/21 17:28 36.6 C 01/10/21 15:59 36.6 C 01/10/21 15:00 89 01/10/21 11:13 36.5 C 01/10/21 09:52 91 H 103 H 81 95 H 95 H 01/10/21 07:38 36.7 C 01/10/21 07:37 01/10/21 07:00 82 Pulse Resp Resp Resp Resp Resp Resp 01/10/21 17:28 79 18 01/10/21 15:59 79 18 01/10/21 15:00 01/10/21 11:13 89 20 01/10/21 09:52 18 20 20 18 18 01/10/21 07:38 79 20 01/10/21 07:37 95 H 20 01/10/21 07:00 BP Pulse Ox Pulse Ox Pulse Ox Pulse Ox Pulse Ox Pulse Ox 01/10/21 17:28 161/72 H 92 01/10/21 15:59 161/72 H 92 01/10/21 15:00 01/10/21 11:13 155/74 H 91 01/10/21 09:52 91 93 88 L 94 83 L 01/10/21 07:38 139/64 91 01/10/21 07:37 91 01/10/21 07:00 01/10/21 06:16 01/10/21 06:16 PG Care Time/CCT Total # of Minutes Spent Total Time Spent with Patient: Total time spent is greater than 50% in co ordination of care (as documented) at patient's floor/unit and/or counseling patient: Coding Level of Care Code 32258 Initial Inpt Care Lvl 3 Diagnoses Exertional dyspnea R06.00
--- NOTE | 2021-01-10 19:55 | Billing Data ---
Date of Service January 10, 2021 Coding Level of Care Code D/C DAY MANAGEMENT <30 MINS
--- NOTE | 2021-01-10 19:56 | Billing Data ---
Date of Service January 10, 2021 Coding Level of Care Code 01588 OBS Care - Discharge Comment disregard <30mins dc - error
--- NOTE | 2021-01-11 05:37 | Electrocardiogram Report ---
Test Reason : Blood Pressure : / mmHG Vent. Rate : 065 BPM Atrial Rate : 065 BPM P-R Int : 150 ms QRS Dur : 098 ms QT Int : 428 ms P-R-T Axes : 020 -11 -74 degrees QTc Int : 445 ms Normal sinus rhythm Possible Left atrial enlargement Left ventricular hypertrophy with repolarization abnormality Abnormal ECG When compared with ECG of 16-AUG-2010 17:45, T wave inversion now evident in Inferior leads T wave inversion now evident in Anterior leads Confirmed by Jose Luis Garcia ([id number]) on 01/11/2021 5:36:37 AM Referred By: REFERRED SELF Confirmed By:Jose Luis Garcia
--- NOTE | 2021-01-11 06:02 | Electrocardiogram Report ---
Test Reason : Blood Pressure : / mmHG Vent. Rate : 077 BPM Atrial Rate : 077 BPM P-R Int : 160 ms QRS Dur : 106 ms QT Int : 402 ms P-R-T Axes : 012 -14 -58 degrees QTc Int : 454 ms Normal sinus rhythm Possible Left atrial enlargement Incomplete right bundle branch block Left ventricular hypertrophy with repolarization abnormality Abnormal ECG When compared with ECG of 09-JAN-2021 15:01, Incomplete right bundle branch block is now Present Confirmed by Jos eLuis Garcia ([id number]) on 01/11/2021 6:02:02 AM Referred By: REFERRED SELF Confirmed By:Jose Luis Garcia
[2021-01-11] MEDS ORDERED: AZITHROMYCIN 250 MG TAB PO SCH (09:00)
== END 2021-01-10 17:54 | disposition home or self-care (01) ==
LOC: ED 14:20 → 2N 14:20 → SUATTDRO 17:21 → 2N 20:11